=== PATIENT | female | born 1945 | race Caucasian/White ===

== ENCOUNTER 2021-06-23 04:57 | Inpatient (IN) | payer MEDICARE, BC ==
[~2021-06-23] VITALS: Ht 154.9 cm; Wt 56.2 kg
--- NOTE | 2021-06-23 04:59 | NUR ---
PT AMBULATED TO ER WITH STEADY GAIT WITH C/O RAPID HEART RATE. PT A/O X4, NO SOB OR LABORED BREATHING, AFEBRILE. DENIES CP/PRESSURE. CLEAR SPEECH, COMPLETE SENTENCES. NO C/O GI/ DISTRESS. AT BEDSIDE.
--- NOTE | 2021-06-23 05:02 | NUR ---
DR. SANON AT BEDSIDE, MSE IN PROGRESS.
[2021-06-23] MEDS ORDERED: DILTIAZEM HCL 50 MG IV ONE (05:25)
[2021-06-23] MEDS ORDERED: ADENOSINE 6 MG/2 ML SYR IV ONE ×2 (05:31→06:15)
--- NOTE | 2021-06-23 05:32 | NUR ---
XRAY AT BEDSIDE.
[2021-06-23] MEDS ORDERED: ASCO500P18 PO (05:35)
[2021-06-23] MEDS ORDERED: CALC-897 PO (05:35)
[2021-06-23] MEDS ORDERED: LOVA20TA2 PO (05:35)
[2021-06-23] MEDS ORDERED: IRBE150T28 PO (05:35)
[2021-06-23] MEDS ORDERED: MULT-594 PO (05:35)
[2021-06-23] MEDS ORDERED: METO-356 PO (05:35)
[2021-06-23] MEDS ORDERED: ASCO500C18 PO (05:35)
[2021-06-23] MEDS ORDERED: FLAX10003 PO (05:35)
[2021-06-23] MEDS ORDERED: AMIODARONE HCL 150 MG/3 ML VIAL IV ONE ×2 (05:37→05:56)
[2021-06-23 05:42] LABS: HEMATOCRIT 44.5 % (31.2-41.9); MEAN CORPUSCULAR HEMOGLOBIN 33.4 uug (24.7-32.8); MEAN CORPUSCULAR VOLUME 96.2 fL (75.5-95.3); PLATELET COUNT (AUTO) 271 K/uL (179-408)
[2021-06-23] MEDS ORDERED: AMIODARONE HCL IV 150 MG in IV DEXTROSE 5% 100 ML IV ONE (05:45)
[2021-06-23] MEDS ORDERED: AMIODARONE HCL IV 450 MG in IV DEXTROSE 5% 250 ML IV PRN (05:45)
[2021-06-23 05:46] LABS: CREATININE 0.7 mg/dL (0.6-1.3); POTASSIUM 3.7 mmol/L (3.5-5.1)
[2021-06-23 05:59] LABS: BILIRUBIN,DIRECT 0.1 mg/dL (0.0-0.2); BILIRUBIN,TOTAL 0.3 mg/dL (0.2-1.0); TOTAL PROTEIN, SERUM 7.7 g/dL (6.4-8.2)
[2021-06-23] MEDS ORDERED: IV NORMAL SALINE 1000 ML BAG IV ONE (06:00)
[2021-06-23] MEDS ORDERED: DILTIAZEM HCL 25 MG IV IV ONE (06:15)
[2021-06-23 06:16] LABS: THYROID STIMULATING HORMONE 4.145 mIU/mL (0.358-3.740)
[2021-06-23 06:18] LABS: MAGNESIUM 2.1 mg/dL (1.8-2.4)
--- NOTE | 2021-06-23 07:22 | NUR ---
Paged Sadie Deleon for admit.
--- NOTE | 2021-06-23 07:51 | NUR ---
Recieved pt in bed, resting, easily arousable. VSS, remaines on Amiodrone drip, SR on monitor. No c/o pain or discomfort.
--- NOTE | 2021-06-23 08:16 | NUR ---
Dr Cuenca spoke to Sadie Deleon admitting for pt to be admitted to [facility].
[2021-06-23] MEDS ORDERED: ACETAMINOPHEN 325 MG TABLET PO PRN (08:30)
[2021-06-23] MEDS ORDERED: Z GUARD REMEDY PASTE 57 GM TUBE TOP PRN (08:30)
[2021-06-23] MEDS ORDERED: ONDANSETRON 4 MG/2 ML VIAL IV PRN (08:30)
[2021-06-23] MEDS ORDERED: HYDROCODONE/APAP 5-325MG TABLET PO PRN (08:30)
[2021-06-23] MEDS ORDERED: MAGNESIUM HYDROXIDE 30 ML LIQUID UDC PO PRN (08:30)
[2021-06-23] MEDS ORDERED: VITAMIN D3 PO SCH (09:00)
[2021-06-23] MEDS ORDERED: CALCIUM CARBONATE PO SCH (09:00)
[2021-06-23] MEDS ORDERED: Medication Not On Formulary EA (Lovastatin 1 TAB) PO SCH (09:00)
[2021-06-23] MEDS ORDERED: Medication Not On Formulary EA (Ascorbic Acid (Vitamin C) 1,000 MG) PO SCH (09:00)
[2021-06-23] MEDS ORDERED: Medication Not On Formulary EA (Irbesartan (Avapro) 1 TAB) PO SCH (09:00)
[2021-06-23] MEDS ORDERED: Medication Not On Formulary EA (Multivitamins (Multivitamin) 1 TAB) PO SCH (09:00)
[2021-06-23] MEDS: LOSARTAN POTASSIUM 50 MG TABLET PO SCH (09:00)
[2021-06-23] MEDS ORDERED: [UNRECOGNIZED DRUG - OTHER] PO SCH (09:00)
[2021-06-23] MEDS: METOPROLOL SUCCINATE XL 25 MG TAB.SR.24H PO SCH (09:24)
[2021-06-23] MEDS: MULTIVITAMINS,THERAPEUTIC TABLET PO SCH (09:24)
[2021-06-23] MEDS: ASCORBIC ACID 500 MG TABLET PO SCH (09:24)
[2021-06-23] MEDS: CALCIUM CARB/VITAMIN D 500MG-200UNITS TABLET PO SCH (09:24)
[2021-06-23] MEDS ORDERED: METOPROLOL SUCCINATE XL 25 MG TAB.SR.24H PO ONE (09:26)
[2021-06-23] MEDS ORDERED: ASCORBIC ACID 500 MG TABLET ONE (09:27)
--- NOTE | 2021-06-23 10:52 | NUR ---
Pt resting in bed, watching TV, continue close monitoring.
--- NOTE | 2021-06-23 11:50 | NUR ---
Stopped Amiodrone drip per Sadie Deleon ANESTHESIOLOGIST. Pt remanines SR so far.
--- NOTE | 2021-06-23 14:01 | NUR ---
Dr Laureano( Informatics Educator) at the bedside, speaking w/ pt and family.
--- NOTE | 2021-06-23 14:03 | NUR ---
Assissted pt to bathroom, no c/o dizziness, able to walk w/ steady gait.
[2021-06-23] MEDS: APIXABAN 5 MG TABLET PO SCH (14:52)
--- NOTE | 2021-06-23 15:00 | NUR ---
double checked with smith valentin on eliquist 5mg po.
[2021-06-23] MEDS ORDERED: ATORVASTATIN 10 MG TABLET PO SCH (21:00)
--- NOTE | 2021-06-23 21:25 | NUR ---
Report given to Angelique RICHARDSON Tele.
[2021-06-23 23:00] VITALS: BP 198/113
[2021-06-24] MEDS: APIXABAN 5 MG TABLET PO SCH ×2 (01:07→08:39)
[2021-06-24 04:06] VITALS: BP 207/112
[2021-06-24] MEDS: METOPROLOL SUCCINATE XL 25 MG TAB.SR.24H PO SCH (05:32)
[2021-06-24] MEDS: LOSARTAN POTASSIUM 50 MG TABLET PO SCH (05:37)
[2021-06-24 06:30] LABS: HEMATOCRIT 42.3 % (31.2-41.9); MEAN CORPUSCULAR HEMOGLOBIN 33.4 uug (24.7-32.8); MEAN CORPUSCULAR VOLUME 96.3 fL (75.5-95.3); PLATELET COUNT (AUTO) 232 K/uL (179-408)
[2021-06-24 06:47] LABS: CREATININE 0.9 mg/dL (0.6-1.3); PHOSPHOROUS 2.9 mg/dL (2.5-4.9); POTASSIUM 3.2 mmol/L (3.5-5.1)
--- NOTE | 2021-06-24 08:00 | NUR ---
Report given by casino shift manager that patient has elevated blood, BP meds were given. Will continue to monitor patient for any significant changes. Informed patient to report any concerns. Frequent checks done. Will continue to monitor.
[2021-06-24 08:04] VITALS: BP 192/99
[2021-06-24] MEDS: CALCIUM CARB/VITAMIN D 500MG-200UNITS TABLET PO SCH (08:38)
[2021-06-24] MEDS: ASCORBIC ACID 500 MG TABLET PO SCH (08:38)
[2021-06-24] MEDS: MULTIVITAMINS,THERAPEUTIC TABLET PO SCH (08:38)
[2021-06-24] MEDS ORDERED: POTASSIUM CHLORIDE 20 MEQ TAB.PRT.SR PO ONE (09:30)
[2021-06-24 11:24] VITALS: BP 188/95
[2021-06-24 13:34] VITALS: BP 155/82
--- NOTE | 2021-06-24 15:00 | NUR ---
MD seen patient. May discharge if BP is stable. Latest BP 155/82. reported to MARICRUZ Noel. patient is okay to be discharged.
[2021-06-24] MEDS ORDERED: APIX5TAB PO (15:06)
--- NOTE | 2021-06-24 16:00 | NUR ---
Discharge patient via private care. Accompanied by the . VS WNL. No distress noted. Belongings list and discharge instructions signed. Skin intact. Education materials given regarding her diagnosis. All her needs were attended. All due medications were given.
== END 2021-06-24 16:00 | disposition home or self-care (01) | DRG 310 ==
LOC: ER 04:59 → TRANSITION 08:16 → TELE3 22:26
PROVIDERS: ADMIT Nurse Practitioner Acute Care; ATTEND Nurse Practitioner Acute Care
DX: I48.92 Unspecified atrial flutter (principal); I16.0 Hypertensive urgency; I44.30 Unspecified atrioventricular block; J45.909 Unspecified asthma, uncomplicated; E78.5 Hyperlipidemia, unspecified; Z20.822 Contact with and (suspected) exposure to COVID-19; R94.6 Abnormal results of thyroid function studies
CPT/HCPCS: 36415; 70030-TC; 71045; 83735; 84100; 84443; 85025; 85730; 93005; 93307; A4663; G0378; J0153; J0282; J3490; J7030; J7060

== ENCOUNTER 2022-07-01 05:54 | Emergency (ER) | payer MEDICARE, BC ==
[~2022-07-01] VITALS: Ht 162.6 cm; Wt 59.0 kg
[~2022-07-01 05:54] MED LIST: APIX5TAB PO; ASCO500P18 PO; CALC-897 PO; FLAX10003 PO; IRBE150T28 PO; LOVA20TA2 PO; METO-356 PO; MULT-594 PO
[2022-07-01] MEDS ORDERED: ADENOSINE 6 MG/2 ML SYR IV ONE ×2 (06:15→06:18)
[2022-07-01 06:22] LABS: HEMATOCRIT 44.6 % (31.2-41.9); MEAN CORPUSCULAR VOLUME 94.4 fL (75.5-95.3); PLATELET COUNT (AUTO) 287 K/uL (179-408)
[2022-07-01 06:28] LABS: CARBON DIOXIDE 27 mmol/L (21-32); CHLORIDE 98 mmol/L (98-107); CREATININE 0.8 mg/dL (0.6-1.3); GLUCOSE 112 mg/dL (74-106); POTASSIUM 3.7 mmol/L (3.5-5.1); UREA NITROGEN, BLOOD 14 mg/dL (7-18)
[2022-07-01] MEDS ORDERED: DILTIAZEM HCL 25 MG IV IV ONE (06:30)
[2022-07-01] MEDS: MAGNESIUM SULFATE/D5W 100 ML IV SCH ×3 (06:30→06:50)
[2022-07-01] MEDS ORDERED: POTASSIUM BICARBONATE/CIT AC 25 MEQ TABLET.EFF PO ONE (06:30)
[2022-07-01] MEDS ORDERED: POTASSIUM BICARBONATE/CIT AC 25 MEQ TABLET.EFF ONE (06:31)
[2022-07-01] MEDS ORDERED: DILTIAZEM HCL 25 MG IV ONE (06:31)
[2022-07-01] MEDS ORDERED: MAGNESIUM SULFATE/D5W 300 ML ONE (06:31)
--- NOTE | 2022-07-01 06:56 | NUR ---
pt came in with elevated heart rate and palpitations. initial ekg revealed svt. adenocard 12 mg was given per mar. pt was given cardizem 25 mg and 3 grams of magnessium. magnessium was given open per Dr. Lopez. pt was also given potassium oral. pt converted to a sinus rhythm with pac noted on ekg. Dr. Lopez was at bedside as pt converted. he wrote d/c home instructions.
--- NOTE | 2022-07-01 07:10 | NUR ---
upon reviewing d/c instructions pt states she feels a little dizzy and would like to wait a little longer before being d/c home. iv is left in at this time.
--- NOTE | 2022-07-01 07:16 | NUR ---
report given to day shift rn
[2022-07-01 07:38] VITALS: BP 114/70
--- NOTE | 2022-07-01 07:39 | NUR ---
IV removed. Catheter intact and site benign. Pressure and 4x4 gauze applied to site. No bleeding noted. Patient discharged to home in stable condition with brisk steady gait. Written and verbal after care instructions given to patient and spouse. Patient and family verbalized understanding and family of instructions. Stressed follow up with primary doctor and user interface designer or return to ER for worsening s/s. Patient denies any discomfort@this time.
== END 2022-07-01 07:41 | disposition home or self-care (01) ==
LOC: ER 05:59
DX: I48.92 Unspecified atrial flutter (principal); J45.909 Unspecified asthma, uncomplicated; I10 Essential (primary) hypertension; Z88.6 Allergy status to analgesic agent; Z88.0 Allergy status to penicillin; Z88.8 Allergy status to other drugs, medicaments and biological substances
CPT/HCPCS: 99285; 96365; 71045; 96375; 80048; 83735; 85025; 84484; 36415; 93005; J0153; J3490; J3475; A4663